=== PATIENT | female | born 1995 | race Caucasian/White ===

== ENCOUNTER 2022-01-29 00:11 | Emergency (ER) | payer OTHER, SELFPAY ==
[2022-01-29 00:16] VITALS: BP 125/69; PULSE 79; RESP 18; TEMP 36.9; O2SAT 100
--- NOTE | 2022-01-29 02:24 | ED.WOUNDLAC ---
HPI - Wound/Laceration General Chief Complaint: Wound/Laceration <Raul Romero DO - Last Filed: 01/29/22 03:20> Stated Complaint: laceration <Raul Romero DO - Last Filed: 01/29/22 03:20> Time Seen by Provider: 01/29/22 01:37 <Raul Romero DO - Last Filed: 01/29/22 03:20> Source: patient <Raul Romero DO - Last Filed: 01/29/22 03:20> Mode of arrival: ambulatory <Raul Romero DO - Last Filed: 01/29/22 03:20> Limitations: no limitations <Raul Romero DO - Last Filed: 01/29/22 03:20> History of Present Illness HPI narrative: 26-year-old female presents emergency room she states she was washing dishes and sustained a laceration to the left wrist. She is very vague in how this happened and will answer most of my questions. She did state that she did not do this intentionally and that she has no suicidal homicidal thoughts. She not up-to-date on tetanus status. She is seeing no other injuries. She states this happened just this evening prior to coming to emergency room. <Raul Romero DO - Last Filed: 01/29/22 03:20> Related Data Allergies/Adverse Reactions: Allergies Allergy/AdvReac Type Severity Reaction Status Date / Time No Known Allergies Allergy Verified 01/29/22 03:14 <Raul Romero DO - Last Filed: 01/29/22 03:20> Review of Systems Review of Systems: CONSTITUTIONAL: Denies fever, chills, or sweats. EYES: Denies visual changes, redness, or discharge. ENT: Denies rhinorrhea, congestion, sore throat, or otalgia. CARDIOVASCULAR: Denies chest pain, palpitations, or edema. RESPIRATORY: Denies cough or dyspnea. GASTROINTESTINAL: Denies abdominal pain, nausea, vomiting, or diarrhea. GENITOURINARY: Denies dysuria or hematuria. SKIN: Denies rash or itching. MUSCULOSKELETAL: No history of any chronic musculoskeletal issues.. NEUROLOGIC: Denies headache, numbness, or weakness. PSYCHIATRIC: Denies anxiety or depression. <Raul Romero DO - Last Filed: 01/29/22 03:20> Exam Narrative: APPEARANCE: Well appearing, no pain or distress, well-nourished. Head normocephalic and atraumatic. EYES: PERRLA/EOMI, conjunctivae very clear. NOSE: Normal with no drainage EARS:TMS clear Shailesh Cordero, with good light reflex. THROAT: Pharynx clear, no exudate. NECK: Supple. No adenopathy, no masses. RESPIRATORY: Airway patent, respirations nonlabored. Clear to auscultation bilaterally, no rales, rhonchi, wheezing. CARDIOVASCULAR: Regular rate and rhythm without murmurs, rubs, or gallops. ABDOMINAL: Soft, nontender, nondistended, no hepatosplenomegaly Musculoskeletal: Moves all extremities. Strength/ROM intact, No edema, No calf tenderness. 2 cm laceration over the lateral volar aspect of the left wrist. Full range of motion. Good pulses. No active bleeding. No evidence of any tendon involvement. NEURO: Alert. Cranial nerves II through XII intact. Normal gait. Good coordination. Nonfocal examination. SKIN:: Warm, dry. Normal Color PSYCHIATRIC: Normal affect/mood, normal interaction <Raul Romero, DO - Last Filed: 01/29/22 03:20> Course Vital Signs Vital signs: Vital Signs Temperature 98.4 F 01/29/22 00:16 Pulse Rate 79 01/29/22 00:16 Respiratory Rate 18 01/29/22 00:16 Blood Pressure 125/69 01/29/22 00:16 Pulse Oximetry 100 01/29/22 00:16 Temperature 98.4 F 01/29/22 00:16 Pulse Rate 79 01/29/22 00:16 Respiratory Rate 18 01/29/22 00:16 Blood Pressure 125/69 01/29/22 00:16 Pulse Oximetry 100 01/29/22 00:16 <Raul Romero, DO - Last Filed: 01/29/22 03:20> Vital Signs Temperature 98.4 F 01/29/22 00:16 Pulse Rate 79 01/29/22 00:16 Respiratory Rate 18 01/29/22 00:16 Blood Pressure 125/69 01/29/22 00:16 Pulse Oximetry 100 01/29/22 00:16 Temperature 98.4 F 01/29/22 00:16 Pulse Rate 79 01/29/22 00:16 Respiratory Rate 18 01/29/22 00:16 Blood Pressure 125/69 01/29/22
[2022-01-29] MEDS: TETANUS/DIPHTHERIA TOXOIDS ADSORB 0.5 ML VIAL (*BKC) IM (03:09)
[2022-01-29 03:23] VITALS: BP 110/65; PULSE 65; RESP 16; O2SAT 100
== END 2022-01-29 03:25 | disposition home or self-care (01) ==
PROVIDERS: Emergency Provider Emergency Medicine
DX: S61.512A Laceration without foreign body of left wrist, initial encounter (principal); Z23 Encounter for immunization; Y93.G1 Activity, food preparation and clean up; W26.8XXA Contact with other sharp object(s), not elsewhere classified, initial encounter
CPT/HCPCS: 12001; 90471; 90714; 99282